=== PATIENT | male | born 1975 | race Caucasian/White ===

== ENCOUNTER 2017-09-24 14:35 | Observation (INO) | payer OTHER ==
[~2017-09-24] VITALS: Ht 177.8 cm; Wt 100.0 kg
[2017-09-24 14:37] VITALS: BP 157/91; PULSE 74; RESP 16; TEMP 98.4; O2SAT 99
--- NOTE | 2017-09-24 15:27 | PD ---
HPI Chief Complaint: Neuro Symptoms/ Deficits Time Seen by Provider: 15:09 Travel History International Travel<30 days: No Contact w/Intl Traveler<30days: No Traveled to known affect area: No History of Present Illness HPI patient complaints of 3 hours of left sided tingling to face, worse at onset ( if he had to rate it, it used to be a 10 and now down to 3/10, just some remaining tingling) to left side of face (cheeck and jaw but not to forehead). speaks clearly, has no weakness, no visual changes currently. all: pcn (swelling), ees (n/v) pmhx: htn , chol pshx: uvulectomy, t&a PFSH Past Medical History Asthma: No Anxiety: No Depression: No Heart Rhythm Problems: No Cardiovascular Problems: Yes High Cholesterol: Yes Chemotherapy: No Chest Pain: Yes Congestive Heart Failure: No COPD: No Diabetes: No Diminished Hearing: No Endocrine: Yes Gastrointestinal Disorders: Yes (DIARRHEA SINCE Sun PANCREATITIS) GERD: Yes Genitourinary: No Hiatal Hernia: No Hypertension: Yes Implanted Vascular Access Dvce: No Kidney Stones: No Musculoskeletal: No Neurologic: Yes Psychiatric: No Reproductive: No Respiratory: Yes Migraines: Yes Pancreatitis: Yes Radiation Therapy: No Renal Failure: No Sleep Apnea: Yes Thyroid Disease: No Ulcer: Yes Past Surgical History Abdominal Surgery: No AICD: No Arteriovenous Shunt: No Cardiac Surgery: No Ear Surgery: No Endocrine Surgery: No Eye Surgery: No Genitourinary Surgery: No Gynecologic Surgery: No Insulin Pump: No Joint Replacement: Yes Neurologic Surgery: No Oral Surgery: No Pacemaker: No Thoracic Surgery: No Other Surgery: Yes (STOMACH BIOPSY) Social History Alcohol Use: Yes (EVERY OTHER DAY) Tobacco Use: No Substance Use: Yes Allergies-Medications (Allergen,Severity, Reaction): Coded Allergies: erythromycin base (Unverified Allergy, Severe, NAUSEA/VOMITING, 06/26/17) penicillin G (Unverified Allergy, Severe, Anaphylaxis, 06/26/17) Reported Meds & Prescriptions Reported Meds & Active Scripts Active Reported Prazosin (Prazosin HCl) 1 Mg Cap 1 Mg PO DAILY Simvastatin 80 Mg Tab 80 Mg PO DAILY Trazodone (Trazodone HCl) 100 Mg Tablet 100 Mg PO HS Citalopram (Citalopram Hydrobromide) 40 Mg Tab 40 Mg PO DAILY Meloxicam 15 Mg Tab 15 Mg PO DAILY Review of Systems Except as stated in HPI: all other systems reviewed are Neg General / Constitutional: No: Fever Eyes: No: Visual changes HENT: Positive: Headaches Cardiovascular: No: Chest Pain or Discomfort Respiratory: No: Shortness of Breath Gastrointestinal: No: Abdominal Pain Genitourinary: No: Dysuria Musculoskeletal: No: Pain Skin: No Rash Neurologic: Positive: Paresthesia Psychiatric: No: Depression Endocrine: No: Polydipsia Hematologic/Lymphatic: No: Easy Bruising Physical Exam Narrative GENERAL: SKIN: Warm and dry. HEAD: Atraumatic. Normocephalic. EYES: Pupils equal and round. No scleral icterus. No injection or drainage. ENT: No nasal bleeding or discharge. Mucous membranes pink and moist. NECK: Trachea midline. No JVD. CARDIOVASCULAR: Regular rate and rhythm. RESPIRATORY: No accessory muscle use. Clear to auscultation. Breath sounds equal bilaterally. GASTROINTESTINAL: Abdomen soft, non-tender, nondistended. MUSCULOSKELETAL: Extremities without clubbing, cyanosis, or edema. No obvious deformities. NEUROLOGICAL: Awake and alert. No obvious cranial nerve deficits. Motor grossly within normal limits. Five out of 5 muscle strength in the arms and legs. Normal speech. PSYCHIATRIC: Appropriate mood and affect; insight and judgment normal. Data Data Last Documented VS Vital Signs Date Time Temp Pulse Resp B/P (MAP) Pulse Ox O2 Delivery O2 Flow Rate FiO2 09/24/17 14:37 98.4 74 16 157/91 (113) 99 Orders Orders Electrocardiogram (09/24/17:) Complete Blood Count With Diff (09/24/17:) Comprehensive Metabolic Panel (09/24/17:) Troponin I (09/24/17:) B-Type Natriuretic Peptide (09/24/17:) Prothrombin Time / Inr (Pt) (09/24/17:) Act Partial Throm Time (Ptt) (09/24/17:) Lipase (09/24/17:) Thyroid Stimulating Hormone (09/24/17:) Chest, Single Ap (09/24/17:) Ct Brain W/O Iv Contrast(Rout) (09/24/17:) Drug Screen, Random Urine (11/13/17 15:23) Alcohol (Ethanol) (09/24/17 15:23) Salicylates (Aspirin) (09/24/17 15:23) Tylenol (Acetaminophen) (09/24/17 15:23) Labs Laboratory Tests Test 09/24/17 15:40 White Blood Count 8.7 TH/MM3 Red Blood Count 4.99 MIL/MM3 Hemoglobin 16.3 GM/DL Hematocrit 47.2 % Mean Corpuscular Volume 94.6 FL Mean Corpuscular Hemoglobin 32.7 PG Mean Corpuscular Hemoglobin Concent 34.6 % Red Cell Distribution Width 13.1 % Platelet Count 197 TH/MM3 Mean Platelet Volume 9.4 FL Neutrophils (%) (Auto) 58.5 % Lymphocytes (%) (Auto) 31.4 % Monocytes (%) (Auto) 7.4 % Eosinophils (%) (Auto) 2.3 % Basophils (%) (Auto) 0.4 % Neutrophils # (Auto) 5.1 TH/MM3 Lymphocytes # (Auto) 2.7 TH/MM3 Monocytes # (Auto) 0.6 TH/MM3 Eosinophils # (Auto) 0.2 TH/MM3 Basophils # (Auto) 0.0 TH/MM3 CBC Comment DIFF FINAL Differential Comment MDM Medical Decision Making Medical Screen Exam Complete: Yes Emergency Medical Condition: Yes Medical Record Reviewed: Yes Interpretation(s) NSR 62, 1 DEGREE AV BLOCK, NO STEMI PATTERN NOTED Differential Diagnosis tia v cva v electrolyte abnl v arrythmia Narrative Course patient seen and will have neuro workup, once completed plan is for patient to be admitted for further neuro eval by medicine team. Diagnosis Primary Impression: tia v paresthesia Admitting Information Admitting Physician Requests: Observation William Dubon MD Sep 24, 2017 15:27
[2017-09-24] MEDS ORDERED: PRAZ1CAP PO (15:29)
[2017-09-24] MEDS ORDERED: CITA40TA4 PO (15:29)
[2017-09-24] MEDS ORDERED: MELO15TA20 PO (15:29)
[2017-09-24] MEDS ORDERED: TRAZ100T10 PO (15:29)
[2017-09-24] MEDS ORDERED: SIMV80TA PO (15:29)
[2017-09-24] MEDS ORDERED: PHENAZOPYRIDINE HCL 100 MG TAB PO ONE (15:30)
--- NOTE | 2017-09-24 16:28 | RADRPT ---
EXAM DATE/TIME: 09/24/2017 15:55 [facility] COMPARISON: No previous studies available for comparison. INDICATIONS : Left facial numbness, left vision problems RADIATION DOSE: 56.35 CTDIvol (mGy) MEDICAL HISTORY : Hypertension. Cardiovascular disease Pancreatitis. SURGICAL HISTORY : None. ENCOUNTER: Initial ACUITY: 1 day PAIN SCALE: 1/10 LOCATION: cranial TECHNIQUE: Multiple contiguous axial images were obtained of the head. Using automated exposure control and adj ustment of the mA and/or kV according to patient size, radiation dose was kept as low as reasonably a chievable to obtain optimal diagnostic quality images. DICOM format image data is available electro nically for review and comparison. FINDINGS: CEREBRUM: The ventricles are normal for age. No evidence of midline shift, mass lesion, hemorrhage or acute in farction. No extra-axial fluid collections are seen. POSTERIOR FOSSA: The cerebellum and brainstem are intact. The 4th ventricle is midline. The cerebellopontine angle i s unremarkable. EXTRACRANIAL: The visualized portion of the orbits is intact. SKULL: The calvaria is intact. No evidence of skull fracture. CONCLUSION: Normal examination. Sai Diaz Jr., MD on September 24, 2017 at 16:26 Board Certified Radiologist. This report was verified electronically.
--- NOTE | 2017-09-24 16:34 | RADRPT ---
EXAM DATE/TIME: 09/24/2017 16:11 [facility] COMPARISON: No previous studies available for comparison. INDICATIONS : Left side numbness MEDICAL HISTORY : None. SURGICAL HISTORY : None. ENCOUNTER: Initial ACUITY: 1 day PAIN SCORE: 0/10 LOCATION: Bilateral chest FINDINGS: A single view of the chest demonstrates the lungs to be symmetrically aerated without evidence of mas s, infiltrate or effusion. The cardiomediastinal contours are unremarkable. Osseous structures are intact. CONCLUSION: No acute disease. Doug Santana MD FACR on September 24, 2017 at 16:32 Board Certified Radiologist. This report was verified electronically.
[2017-09-24 16:35] LABS: AUTOMATED NEUTROPHIL # 5.1 TH/MM3 (1.8-7.7); BASOPHIL % 0.4 % (0.0-2.0); EOSINOPHIL # 0.2 TH/MM3 (0-0.4); EOSINOPHIL % 2.3 % (0.0-4.0); HEMATOCRIT 47.2 % (39.0-51.0); HEMO FLAGS DIFF FINAL; LYMPH % 31.4 % (9.0-44.0); LYMPHOCYTE # 2.7 TH/MM3 (1.0-4.8); MEAN CELL VOLUME 94.6 FL (80.0-100.0); MEAN CORPUSCULAR HEMOGLOBIN 32.7 PG (27.0-34.0); MEAN CORPUSCULAR HGB CONC 34.6 % (32.0-36.0); MONO % 7.4 % (0.0-8.0); NEUT % 58.5 % (16.0-70.0); PLATELET COUNT 197 TH/MM3 (150-450); RED BLOOD COUNT 4.99 MIL/MM3 (4.50-5.90); RED CELL DISTRIBUTION WIDTH 13.1 % (11.6-17.2); WHITE BLOOD COUNT 8.7 TH/MM3 (4.0-11.0)
[2017-09-24 16:38] LABS: APTT (PATIENT) 25.3 SEC (24.3-30.1); PROTHROMBIN TIME - PATIENT 10.9 SEC (9.8-11.6)
[2017-09-24 16:45] LABS: ANION GAP 8 MEQ/L (5-15); AST (GOT) 23 U/L (15-37); BICARBONATE 27.2 MEQ/L (21.0-32.0); BLOOD UREA NITROGEN 14 MG/DL (7-18); CHLORIDE 105 MEQ/L (98-107); GLOMERULAR FILTRATION RATE 68 ML/MIN (>89); POTASSIUM 3.9 MEQ/L (3.5-5.1); SODIUM (NA) 140 MEQ/L (136-145)
[2017-09-24 16:48] LABS: ALCOHOL LESS THAN 3 MG/DL (0-5)
[2017-09-24 16:56] LABS: ALKALINE PHOSPHATASE 72 U/L (45-117); ALT (GPT) 46 U/L (12-78); TOTAL BILIRUBIN ADULT 0.4 MG/DL (0.2-1.0)
[2017-09-24] MEDS ORDERED: SODIUM CHLORIDE 0.9% FLUSH 10 ML FLUSH IV FLUSH PRN (17:00)
[2017-09-24 17:11] LABS: ACETAMINOPHEN LESS THAN 2.0 MCG/ML (10.0-30.0)
[2017-09-24 18:08] VITALS: BP 135/81; PULSE 56; RESP 16; TEMP 98.6; O2SAT 98
--- NOTE | 2017-09-24 19:20 | HHI.HP ---
[facility] Admission Diagnosis TIA Diagnoses: Travel History International Travel<30 Days: No Contact w/Intl Traveler <30 Da: No Traveled to Known Affected Are: No History of Present Illness 42-year-old male with a past medical history significant for hyperlipidemia and ANGEL presents with a 3 hour history of visual changes and facial numbness. The patient was in his usual state of health at work when he started noticing flashing lights in his left lower visual field. Shortly thereafter, the patient started to feel numbness on the left side of his face between his eye and his mouth. He did not notice any facial droop or any facial weakness. He denies any lateralizing symptoms. His gait was normal throughout the episode. His blood pressure was taken at work and it was noted to be 180/100. His symptoms have since resolved. CT of the head was within normal limits. Review of Systems Denies fever or chills Denies blurry vision, otorrhea, rhinorrhea Denies sore throat and cough No chest pain, palpitations, shortness of breath No abdominal pain Denies constipation/diarrhea/nausea/vomiting Denies muscle pain/weakness No rashes Past Family Social History Past Medical History ANGEL Hyperlipidemia Anxiety/depression/PTSD Past Surgical History Tonsillectomy/uvulectomy Turbinectomy Deviated septum repair L5-S1 fusion Reported Medications Reported Meds & Active Scripts Active Reported Prazosin (Prazosin HCl) 1 Mg Cap 1 Mg PO DAILY Simvastatin 80 Mg Tab 80 Mg PO DAILY Trazodone (Trazodone HCl) 100 Mg Tablet 100 Mg PO HS Citalopram (Citalopram Hydrobromide) 40 Mg Tab 40 Mg PO DAILY Meloxicam 15 Mg Tab 15 Mg PO DAILY Allergies: Coded Allergies: erythromycin base (Unverified Allergy, Severe, NAUSEA/VOMITING, 06/26/17) penicillin G (Unverified Allergy, Severe, Anaphylaxis, 06/26/17) Family History Mother with leukemia. Father's history unknown. Social History Never smoker. Occasional alcohol. Denies marijuana and illicit drugs. Physical Exam Vital Signs Vital Signs Date Time Temp Pulse Resp B/P (MAP) Pulse Ox O2 Delivery O2 Flow Rate FiO2 09/24/17 18:08 98.6 56 16 135/81 (99) 98 09/24/17 18:04 09/24/17 14:37 98.4 74 16 157/91 (113) 99 Physical Exam GENERAL: male sitting up in bed SKIN: No rashes, ecchymoses or lesions. Cool and dry. HEAD: Atraumatic. Normocephalic. No temporal or scalp tenderness. EYES: Pupils equal round and reactive. Extraocular motions intact. No scleral icterus. No injection or drainage. ENT: Nose without bleeding, purulent drainage or septal hematoma. Throat without erythema or exudate. Airway patent. NECK: Trachea midline. No JVD or lymphadenopathy. Supple, nontender, no meningeal signs. CARDIOVASCULAR: Regular rate and rhythm without murmurs, gallops, or rubs. RESPIRATORY: Clear to auscultation. Breath sounds equal bilaterally. No wheezes , rales, or rhonchi. GASTROINTESTINAL: Abdomen soft, non-tender, nondistended. No hepato-splenomegaly , or palpable masses. No guarding. MUSCULOSKELETAL: Extremities without clubbing, cyanosis, or edema. No joint tenderness, effusion, or edema noted. No calf tenderness. Negative Homans sign bilaterally. NEUROLOGICAL: Awake and alert. Cranial nerves II through XII intact. Motor and sensory equal bilaterally. Five out of 5 muscle strength in all muscle groups. Normal speech. Laboratory Laboratory Tests Test 09/24/17 15:40 White Blood Count 8.7 Red Blood Count 4.99 Hemoglobin 16.3 Hematocrit 47.2 Mean Corpuscular Volume 94.6 Mean Corpuscular Hemoglobin 32.7 Mean Corpuscular Hemoglobin Concent 34.6 Red Cell Distribution Width 13.1 Platelet Count 197 Mean Platelet Volume 9.4 Neutrophils (%) (Auto) 58.5 Lymphocytes (%) (Auto) 31.4 Monocytes (%) (Auto) 7.4 Eosinophils (%) (Auto) 2.3 Basophils (%) (Auto) 0.4 Neutrophils # (Auto) 5.1 Lymphocytes # (Auto) 2.7 Monocytes # (Auto) 0.6 Eosinophils # (Auto) 0.2 Basophils # (Auto) 0.0 CBC Comment DIFF FINAL Differential Comment Prothrombin Time 10.9 Prothromb Time International Ratio 1.0 Activated Partial Thromboplast Time 25.3 Blood Urea Nitrogen 14 Creatinine 1.18 Random Glucose 95 Total Protein 7.9 Albumin 4.1 Calcium Level 9.1 Alkaline Phosphatase 72 Aspartate Amino Transf (AST/SGOT) 23 Alanine Aminotransferase (ALT/SGPT) 46 Total Bilirubin 0.4 Sodium Level 140 Potassium Level 3.9 Chloride Level 105 Carbon Dioxide Level 27.2 Anion Gap 8 Estimat Glomerular Filtration Rate 68 Troponin I LESS THAN 0.02 Lipase 223 Thyroid Stimulating Hormone 3rd Gen 2.120 Salicylates Level LESS THAN 1.7 Urine Opiates Screen NEG Acetaminophen Level LESS THAN 2.0 Urine Barbiturates Screen NEG Urine Amphetamines Screen NEG Urine Benzodiazepines Screen NEG Urine Cocaine Screen NEG Urine Cannabinoids Screen NEG Ethyl Alcohol Level LESS THAN 3 Result Diagram: 09/24/17153909/24/171539 Kori VTE Risk Assessment Kori VTE Risk Assessment: No/Low Risk (score <= 1) Justinrini Risk Assessment Model Point Value = 1 Point Value = 2 Point Value = 3 Point Value = 5 Age 41-60 Minor surgery BMI > 25 kg/m2 Swollen legs Varicose veins or History of unexplained or recurrent spontaneous Oral contraceptives or hormone replacement Sepsis (< 1 month) Serious lung disease, including pneumonia (< 1 month) Abnormal pulmonary function Acute myocardial infarction Congestive heart failure (< 1 month) History of inflammatory bowel disease Medical patient at bed rest Age 61-74 Arthroscopic surgery Major open surgery (> 45 min) Laparoscopic surgery (> 45 min) Malignancy Confined to bed (> 72 hours) Immobilizing plaster cast Central venous access Age >= 75 History of VTE Family history of VTE Factor V Leiden Prothrombin [id number] Lupus anticoagulant Anticardiolipin antibodies Elevated serum homocysteine Heparin-induced thrombocytopenia Other congenital or acquired thrombophilia Stroke (< 1 month) Elective arthroplasty Hip, pelvis, or leg fracture Acute spinal cord injury (< 1 month) Prophylaxis Regimen Total Risk Factor Score Risk Level Prophylaxis Regimen 0-1 Low Early ambulation 2 Moderate Order ONE of the following: *Sequential Compression Device (SCD) *Heparin 5000 units SQ BID 3-4 Higher Order ONE of the following medications: *Heparin 5000 units SQ TID *Enoxaparin/Lovenox 40 mg SQ daily (WT < 150 kg, CrCl > 30 mL/min) *Enoxaparin/Lovenox 30 mg SQ daily (WT < 150 kg, CrCl > 10-29 mL/min) *Enoxaparin/Lovenox 30 mg SQ BID (WT < 150 kg, CrCl > 30 mL/min) AND/OR *Sequential Compression Device (SCD) 5 or more Highest Order ONE of the following medications: *Heparin 5000 units SQ TID (Preferred with Epidurals) *Enoxaparin/Lovenox 40 mg SQ daily (WT < 150 kg, CrCl > 30 mL/min) *Enoxaparin/Lovenox 30 mg SQ daily (WT < 150 kg, CrCl > 10-29 mL/min) *Enoxaparin/Lovenox 30 mg SQ BID (WT < 150 kg, CrCl > 30 mL/min) AND *Sequential Compression Device (SCD) Assessment and Plan Assessment and Plan 42-year-old male with past medical history of ANGEL and hyperlipidemia presents with a 3 hour history of left-sided facial numbness and visual changes. 1. TIA CT head within normal limits MRI/carotid ultrasound/echo pending Lipid profile/A1c pending Neurology consulted, appreciate recommendations 2. ANGEL Continue CPAP at night 3. Hyperlipidemia Continue statin 4. Depression/anxiety/PTSD Continue home citalopram and trazodone FEN Heart healthy diet after swallow evaluation Electrolytes: Within normal limits, monitor and replete when necessary Heparin Cammy Ferrell MD Sep 24, 2017 19:20
[2017-09-24 20:00] VITALS: BP 130/82; PULSE 66; RESP 19; TEMP 98.1; O2SAT 97
[2017-09-24] MEDS: SODIUM CHLORIDE 0.9% FLUSH 10 ML FLUSH IV FLUSH SCH (21:00)
[2017-09-24] MEDS ORDERED: NON-FORMULARY DRUG (Trazodone 100 MG) PO SCH (21:00)
--- NOTE | 2017-09-24 21:39 | RADRPT ---
EXAM DATE/TIME: 09/24/2017 20:08 [facility] COMPARISON: No previous studies available for comparison. INDICATIONS : Transient ischemic attack. MEDICAL HISTORY : Hypercholesterolemia. Hypertension. Gastroesophageal reflux disease. Pancreatitis. SURGICAL HISTORY : L5-S1 spinal fusion. Stomach biopsy. ENCOUNTER: Subsequent ACUITY: 1 day PAIN SCORE: 0/10 LOCATION: Bilateral neck PEAK SYSTOLIC VELOCITIES (cm/sec): ICA/CCA RATIO: Right: 0.9 Left: 0.7 ICA: Right: 80.1 Left: 80.8 CCA: Right: 92.7 Left: 113.1 ECA: Right: 109.2 Left: 114.9 VERTEBRAL: Right: 49.0 antegrade Left: 59.0 antegrade Elevated flow velocities and ICA/CCA ratios have been found to correlate with increased degrees of vessel stenosis, calculated as percentage of diameter relative to a normal segment of distal ICA/CCA FINDINGS: RIGHT CAROTID: No significant stenosis is visualized. The waveforms are within normal limits. LEFT CAROTID: No significant stenosis is visualized. The waveforms are within normal limits. VERTEBRAL ARTERIES: Antegrade flow is seen in both vertebral arteries. MISCELLANEOUS: None. CONCLUSION: Normal examination. Carl Echeverria MD on September 24, 2017 at 21:37 Board Certified Radiologist. This report was verified electronically.
[2017-09-24] MEDS: HEPARIN SODIUM - SQ 10,000 UNITS/ML VIAL SQ SCH (22:00)
[2017-09-24 23:36] VITALS: BP 125/72; PULSE 76; RESP 19; TEMP 98.4; O2SAT 96
[2017-09-25 03:30] VITALS: BP 132/82; PULSE 72; RESP 18; TEMP 98.2; O2SAT 96
[2017-09-25] MEDS: HEPARIN SODIUM - SQ 10,000 UNITS/ML VIAL SQ SCH ×2 (05:49→14:00)
--- NOTE | 2017-09-25 08:13 | PD.CONS ---
History of Present Illness Service Neurology Consult Requested By medical Reason for Consult tia Primary Care Physician [facility] History of Present Illness 42-year-old male admitted for possible tia. 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 left lower visual light flashes, His blood pressure was taken at work and it was noted to be 180/ 100. His symptoms have since resolved. CT of the head was within normal limits. not on any antiplatelets. no hx of tia/sz/stroke/migraine. no family hx of stroke. no hx of afib/lupus/clotting d/o. Review of Systems as above and admit hp Past Family Social History Past Medical History ANGEL Hyperlipidemia PTSD depression anxiety Past Surgical History Tonsillectomy/uvulectomy Turbinectomy Deviated septum repair L5-S1 fusion Reported Medications Reported Meds & Active Scripts Allergies: Coded Allergies: erythromycin base (Unverified Allergy, Severe, NAUSEA/VOMITING, 06/26/17) penicillin G (Unverified Allergy, Severe, Anaphylaxis, 06/26/17) Family History Mother with leukemia Social History no tobacco use Occasional alcohol. Denies marijuana and illicit drugs. Review of Systems All other ROS: ROS reviewed as documented in chart Past Family Social History Allergies: Coded Allergies: erythromycin base (Unverified Allergy, Severe, NAUSEA/VOMITING, 06/26/17) penicillin G (Unverified Allergy, Severe, Anaphylaxis, 06/26/17) Active Ordered Medications Current Medications Medications (Trade) Dose Ordered Sig/Donnie Route Start Time Stop Time Status Last Admin (NS Flush) 2 ml BID IV FLUSH 09/24/17 21:00 09/24/17 21:00 (NS Flush) 2 ml UNSCH PRN IV FLUSH 09/24/17 17:00 (CeleXA) 40 mg DAILY PO 09/25/17 09:00 (Minipress) 1 mg DAILY PO 09/25/17 09:00 (Heparin Inj) 5,000 units Q8HR SQ 09/24/17 22:00 Patient Own Medication PT OWN MED: SIMVASTA... DAILY PO 09/25/17 09:00 Future Hold (Desyrel) 100 mg HS PO 09/25/17 21:00 Exam I&O / VS Vital Signs Date Time Temp Pulse Resp B/P (MAP) Pulse Ox O2 Delivery O2 Flow Rate FiO2 09/25/17 03:30 98.2 72 18 132/82 (99) 96 09/24/17 23:36 98.4 76 19 125/72 (89) 96 09/24/17 20:00 98.1 66 19 130/82 (98) 97 09/24/17 18:08 98.6 56 16 135/81 (99) 98 09/24/17 18:04 09/24/17 14:37 98.4 74 16 157/91 (113) 99 General: Alert and Oriented, No acute distress Eye: EOMI Respiratory: Non-labored respirations Cardiology: Normal rate Musculoskeletal: ROM Neurologic: Alert, Oriented, Normal sensory, Normal motor, No focal defects, CN II-XII intact, Gag reflex normal, Normal DTR's Psychiatric: Cooperative, Appropriate mood & affect, Normal judgement, Non- suicidal Review/Management Diagnosis/Plan: (1) Hypertensive urgency ICD Codes: I16.0 - Hypertensive urgency Status: Acute Plan: etiology: htn urgency/tia/complicated migraine recs bp control aspirin qd f/u mri/mra/echo/lipid panel exercise, wt loss. ldl <70 d/c planning today if above negative and f[facility]u [facility] f/u with [facility] for event monitor and consideration of belén Mata Light MD Sep 25, 2017 08:13
[2017-09-25] MEDS ORDERED: LACTULOSE SYRUP 20 GM/30 ML CUP PO PRN (08:15)
[2017-09-25] MEDS ORDERED: ONDANSETRON HCL 4 MG/2 ML VIAL IVP PRN (08:15)
[2017-09-25] MEDS ORDERED: MAGNESIUM HYDROXIDE SUSP 30 ML CUP PO PRN (08:15)
[2017-09-25] MEDS ORDERED: ACETAMINOPHEN 325 MG TAB PO PRN ×2 (08:15)
[2017-09-25] MEDS ORDERED: BISACODYL 10 MG SUPP RECTAL PRN (08:15)
[2017-09-25] MEDS ORDERED: NALOXONE HCL 0.4 MG/ML AMP IV PUSH PRN (08:15)
[2017-09-25] MEDS ORDERED: HEPARIN SODIUM - SQ 10,000 UNITS/ML VIAL SQ SCH (08:15)
[2017-09-25] MEDS ORDERED: SENNOSIDES 8.6 MG TAB PO PRN (08:15)
[2017-09-25 08:40] VITALS: BP 120/80; PULSE 69; RESP 18; TEMP 98; O2SAT 95
[2017-09-25] MEDS ORDERED: CITALOPRAM HYDROBROMIDE 40 MG TAB PO SCH (09:00)
[2017-09-25] MEDS ORDERED: PRAZOSIN HCL 1 MG CAP PO SCH (09:00)
[2017-09-25] MEDS ORDERED: DOCUSATE SODIUM 50 MG/SENNA 8.6 MG TAB PO SCH (09:00)
[2017-09-25] MEDS ORDERED: NON-FORMULARY DRUG (Simvastatin 80 MG) PO SCH (09:00)
[2017-09-25] MEDS ORDERED: [UNRECOGNIZED DRUG - OTHER] PO SCH (09:00)
[2017-09-25] MEDS ORDERED: ASPIRIN EC 325 MG TABEC PO SCH (09:00)
[2017-09-25] MEDS: SODIUM CHLORIDE 0.9% FLUSH 10 ML FLUSH IV FLUSH SCH (09:50)
--- NOTE | 2017-09-25 12:13 | RADRPT ---
EXAM DATE/TIME: 09/25/2017 11:16 [facility] COMPARISON: CT BRAIN W/O CONTRAST, September 24, 2017, 15:55. INDICATIONS : TIA. Left facial numbness and left vision changes. MEDICAL HISTORY : None. SURGICAL HISTORY : Fusion, lumbar. ENCOUNTER: Subsequent ACUITY: 2 day PAIN SCORE: 0/10 LOCATION: head. TECHNIQUE: Multiplanar, multisequence MRI of the brain was performed without contrast. FINDINGS: CEREBRUM: The ventricles are normal for age. No evidence of midline shift, mass lesion, hemorrhage or acute in farction. No extraaxial fluid collections are seen. The pituitary gland and suprasellar cistern are normal in configuration. WHITE MATTER: No significant signal abnormalities are seen in the white matter. POSTERIOR FOSSA: The cerebellum and brainstem are intact. The 4th ventricle is midline. The cerebellopontine angle is unremarkable. The cerebellar tonsils are normal in position. DIFFUSION IMAGING: No focal areas of restricted diffusion are seen. No evidence of acute infarction. EXTRACRANIAL: The visualized portions of the orbits and paranasal sinuses are unremarkable. CONCLUSION: Unremarkable MRI of the brain. No acute infarction. Ramin Danielle MD on September 25, 2017 at 12:10 Board Certified Radiologist. This report was verified electronically.
--- NOTE | 2017-09-25 12:14 | RADRPT ---
EXAM DATE/TIME: 09/25/2017 11:16 [facility] COMPARISON: No previous studies available for comparison. INDICATIONS : TIA. Left facial numbness and left vision changes. MEDICAL HISTORY : None. SURGICAL HISTORY : Fusion, lumbar. ENCOUNTER: Subsequent ACUITY: 2 day PAIN SCORE: 0/10 LOCATION: head. Please note a normal MRA of the brain does not entirely exclude the possibility of a small aneurysm, nor the possibility of distal intracranial vessel disease. TECHNIQUE: 3D time of flight MRA was performed. Source images, multiplanar STS MIP, and 3D volume MIP reconstru ctions were reviewed. FINDINGS: There is excellent visualization of the major intracranial arteries out to the second-order branch ve ssels. There is no evidence for aneurysm, vessel truncation or stenosis, and no evidence for vascula r malformation. Vertebral basilar junction normal. Anterior and posterior communicating arteries are not seen. CONCLUSION: Normal MRA of the brain. Normal variants as described above. Ramin Danielle MD on September 25, 2017 at 12:11 Board Certified Radiologist. This report was verified electronically.
[2017-09-25 13:12] VITALS: BP 140/97; PULSE 72; RESP 18; TEMP 98; O2SAT 96
[2017-09-25] MEDS ORDERED: ASPI81TA23 PO (14:11)
--- NOTE | 2017-09-25 14:13 | HHI.DCPOC ---
Discharge Care Plan Diagnosis: (1) TIA (transient ischemic attack) (2) Hypertensive urgency Goals to Promote Your Health * To prevent worsening of your condition and complications * To maintain your health at the optimal level Directions to Meet Your Goals Please do not drive until PCP follow up Take your medications as prescribed Follow your dietary instruction Follow activity as directed Keep your appointments as scheduled Take your immunizations and boosters as scheduled If your symptoms worsen call your PCP, if no PCP go to Urgent Care Center or Emergency Room Smoking is Dangerous to Your Health. Avoid second hand smoke Call the 24-hour hour crisis hotline for domestic abuse at Tiffanie Chang Sep 25, 2017 14:13
--- NOTE | 2017-09-25 14:23 | EKG ---
Date Performed: 09/24/2017 Time Performed: 16:32:46 PTAGE: 42 years EKG: Sinus rhythm WITH FIRST DEGREE AV BLOCK INFERIOR MYOCARDIAL INFARCTION ABNORMAL ECG PREVIOUS TRACING : 01/31/2012 21.37 Compared to prior tracing no significant change DOCTOR: Cuate Godwin Interpretating Date/Time 09/25/2017 14:16:54
--- NOTE | 2017-09-25 16:11 | HHI.PR ---
Subjective Remarks Follow-up TIA. Resolved visual changes and facial numbness. Discussed with RN Objective Vitals Vital Signs Date Time Temp Pulse Resp B/P (MAP) Pulse Ox O2 Delivery O2 Flow Rate FiO2 09/25/17 13:12 98.0 72 18 140/97 (111) 96 09/25/17 08:40 98.0 69 18 120/80 (93) 95 09/25/17 03:30 98.2 72 18 132/82 (99) 96 09/24/17 23:36 98.4 76 19 125/72 (89) 96 09/24/17 20:00 98.1 66 19 130/82 (98) 97 09/24/17 18:08 98.6 56 16 135/81 (99) 98 09/24/17 18:04 Result Diagram: 09/24/17 1540 09/24/17 1540 Imaging Last Impressions Head Magnetic Resonance Angiography 09/25/17 0000 Signed Impressions: Service Date/Time: Monday, September 25, 2017 11:16 - CONCLUSION: Normal MRA of the brain. Normal variants as described above. Ramin Danielle MD Brain MRI 09/25/17 0000 Signed Impressions: Service Date/Time: Monday, September 25, 2017 11:16 - CONCLUSION: Unremarkable MRI of the brain. No acute infarction. Ramin Danielle MD Head CT 09/24/17 1523 Signed Impressions: Service Date/Time: Sunday, September 24, 2017 15:55 - CONCLUSION: Normal examination. Sai Diaz Jr., MD Chest X-Ray 09/24/17 1523 Signed Impressions: Service Date/Time: Sunday, September 24, 2017 16:11 - CONCLUSION: No acute disease. Doug Santana MD FACR Carotid Artery Ultrasound 09/24/17 0000 Signed Impressions: Service Date/Time: Sunday, September 24, 2017 20:08 - CONCLUSION: Normal examination. Carl Echeverria MD Objective Remarks GENERAL: male sitting up in bed SKIN: No rashes, ecchymoses or lesions. Cool and dry. CARDIOVASCULAR: Regular rate and rhythm without murmurs, gallops, or rubs. RESPIRATORY: Clear to auscultation. Breath sounds equal bilaterally. No wheezes , rales, or rhonchi. GASTROINTESTINAL: Abdomen soft, non-tender, nondistended. No guarding. MUSCULOSKELETAL: Extremities without clubbing, cyanosis, or edema. No joint tenderness, effusion, or edema noted. No calf tenderness. Negative Homans sign bilaterally. NEUROLOGICAL: Awake and alert. Cranial nerves II through XII intact. Motor and sensory equal bilaterally. Five out of 5 muscle strength in all muscle groups. Normal speech. Procedures None A/P Problem List: (1) TIA (transient ischemic attack) ICD Code: G45.9 - Transient cerebral ischemic attack, unspecified Assessment and Plan 42-year-old male with past medical history of ANGEL and hyperlipidemia presents with a 3 hour history of left-sided facial numbness and visual changes. 1. TIA. Neurologically stable. CT head within normal limits Unremarkable MRI/carotid ultrasound with echo pending Lipid profile/A1c pending Neurology consulted, appreciate recommendations. Continue aspirin and outpatient follow with [place] [facility] for event monitor and [place] No driving 2. ANGEL Continue CPAP at night 3. Hyperlipidemia Continue statin 4. Depression/anxiety/PTSD Continue home citalopram and trazodone FEN Heart healthy diet after swallow evaluation Electrolytes: Within normal limits, monitor and replete when necessary Heparin Discharge Planning Discharge patient to home Condition on discharge: Improved Regular Diet as tolerated Ad Germaine activity no driving Rx written: Aspirin Follow-up with primary care physician, cardiology and neurology Willy Paez MD Sep 25, 2017 16:11
--- NOTE | 2017-09-25 16:53 | ECHRPT ---
Indication: CVA/TIA CONCLUSIONS Normal left ventricular size. Wall thickness is normal. The left ventricular systolic function is normal with an estimated ejection fraction in the range of 60-65%. Atrial septal aneurysm is present (benign finding). BP: 132 / 82 HR: 72 Rhythm: MEASUREMENTS (Male / Female) Normal Values Technical Quality:Good 2D ECHO LV Diastolic Diameter PLAX 4.2 cm 4.2 - 5.9 / 3.9 - 5.3 cm LV Systolic Diameter PLAX 3.0 cm IVS Diastolic Thickness 1.1 cm 0.6 - 1.0 / 0.6 - 0.9 cm LVPW Diastolic Thickness 0.9 cm 0.6 - 1.0 / 0.6 - 0.9 cm LV Relative Wall Thickness 0.5 RV Internal Dim ED PLAX 2.1 cm LA Systolic Diameter LX 3.6 cm 3.0 - 4.0 / 2.7 - 3.8 cm M-MODE Aortic Root Diameter MM 3.6 cm AV Cusp Separation MM 2.3 cm DOPPLER Mitral E Point Velocity 75.5 cm/s Mitral A Point Velocity 59.7 cm/s Mitral E to A Ratio 1.3 TR Peak Velocity 122.0 cm/s TR Peak Gradient 6.0 mmHg Right Atrial Pressure 5.0 mmHg Pulmonary Artery Systolic Pressu 11.0 mmHg Right Ventricular Systolic Press 11.0 mmHg FINDINGS LEFT VENTRICLE Normal left ventricular size. Wall thickness is normal. The left ventricular systolic function is normal with an estimated ejection fraction in the range of 60-65%. RIGHT VENTRICLE Normal right ventricular size and systolic function. LEFT ATRIUM The left atrial size is normal. RIGHT ATRIUM The right atrial size is normal. ATRIAL SEPTUM Atrial septal aneurysm is present (benign finding). AORTA The aortic root and proximal ascending aorta are normal in size on limited imaging. MITRAL VALVE Structurally normal mitral valve. No mitral valve stenosis or regurgitation. AORTIC VALVE Trileaflet aortic valve. No aortic valve stenosis or regurgitation. TRICUSPID VALVE Structurally normal tricuspid valve. No tricuspid valve stenosis or regurgitation. PULMONARY VALVE The pulmonary valve is not well visualized. VESSELS The inferior vena cava is normal in size. PERICARDIUM No pericardial effusion. Ever Sharpe MD, FACC (Electronically Signed) Final Date:25 September 2017 16:52
[2017-09-25 18:24] VITALS: BP 134/89; PULSE 89; RESP 16; TEMP 98.1; O2SAT 96
[2017-09-25 20:46] LABS: HEMOGLOBIN A1b 0.8 %; HEMOGLOBIN Ao 86.7 %; HEMOGLOBIN LA1C 1.3 %; HEMOGLOBIN P3 3.3 %
[2017-09-25] MEDS ORDERED: traZODone HCL 100 MG TAB PO SCH (21:00)
== END 2017-09-25 20:02 | disposition home or self-care (01) ==
LOC: NEPD 14:35 → NEDA 17:00 → NEPGCP 18:31
PROVIDERS: ADMIT Internal Medicine; ATTEND Internal Medicine
DX: I16.0 Hypertensive urgency (principal); R20.0 Anesthesia of skin; I44.0 Atrioventricular block, first degree; K21.9 Gastro-esophageal reflux disease without esophagitis; I10 Essential (primary) hypertension; G43.909 Migraine, unspecified, not intractable, without status migrainosus; K85.90 Acute pancreatitis without necrosis or infection, unspecified; G47.33 Obstructive sleep apnea (adult) (pediatric); E78.5 Hyperlipidemia, unspecified; F43.10 Post-traumatic stress disorder, unspecified; F32.9 Major depressive disorder, single episode, unspecified; R09.89 Other specified symptoms and signs involving the circulatory and respiratory systems; R06.89 Other abnormalities of breathing; Z79.899 Other long term (current) drug therapy
CPT/HCPCS: 70450; 70544; 70551; 71010; 80053; 80307; 83036; 83690; 83880; 84443; 84484; 85025; 85610; 85730; 93005; 93306; 93880; 99285; G0378